=== PATIENT | female | born 1995 | race Asian ===

== ENCOUNTER 2016-02-19 20:46 | Emergency (ER) | payer OTHER ==
[~2016-02-19] VITALS: Ht 154.9 cm; Wt 54.5 kg
[~2016-02-19 20:46] MED LIST: CYCL-319 PO; IBUP400T22 PO
[2016-02-19 21:05] VITALS: Ht 154.9 cm; Wt 54.5 kg
[2016-02-19] MEDS ORDERED: ACETAMINOPHEN 500 MG TAB PO STA (22:04)
[2016-02-19 22:30] LABS: URINE BLOOD (Dip) POC 2+ (NEGATIVE)
--- NOTE | 2016-02-19 22:31 | RADRPT ---
PROCEDURE: CT Head without contrast. CLINICAL INDICATION: headache, auras TECHNIQUE: Continuous axial CT images were obtained from the base of skull to the vertex. No cont rast was administered. The calculated radiation dose measures 630 mGy centimeters. The CTDI measures 45 mGy COMPARISON: None available FINDINGS: The ventricles are symmetric and normal in size. There is no mass effect or midline shift. There i s no abnormal intra-axial or extra-axial fluid collection. There is no evidence of intracranial hem orrhage. There are no abnormal areas of increased or decreased attenuation in the brain parenchyma. The bony calvarium is intact. The orbital soft tissue contents are unremarkable. Paranasal sinuses appear clear IMPRESSION: No mass effect or acute intracranial bleed. Unremarkable CT brain. RPTAT: HBST .Audi Nava MD, Date Time Electronically viewed and signed by .Audi Nava MD, on 02/19/2016 22:31 .T/
[2016-02-19 23:06] LABS: BASOPHILS % 0.5 % (0.0-2.0); EOSINOPHILS # 0.3 10^3/ul (0.0-0.5); EOSINOPHILS % 4.3 % (0.0-7.0); HEMATOCRIT 40.8 % (37.0-47.0); HEMOGLOBIN 13.6 g/dl (12.0-16.0); LYMPHOCYTES % 30.2 % (18.0-55.0); MEAN CORPUSCULAR HEMOGLOBIN 26.6 pg (29.0-33.0); MEAN CORPUSCULAR HGB CONC 33.3 g/dl (32.0-37.0); MONOCYTE # 0.4 10^3/ul (0.3-0.9); MONOCYTES % 6.2 % (0.0-13.0); NEUTROPHIL # 3.9 10^3/ul (1.6-7.5); NEUTROPHILS % 58.8 % (30.0-74.0); PLATELET COUNT 150 10^3/UL (140-440); RED CELL DISTRIBUTION WIDTH 14.3 % (11.5-14.5); UNCORRECTED WBC 6.7 10^3/ul (4.8-10.8); WHITE BLOOD COUNT 6.7 10^3/ul (4.8-10.8)
[2016-02-19 23:11] LABS: CONDITION 1; LH ANALYZER COMMENTS 1
[2016-02-19 23:17] LABS: ALBUMIN 4.7 g/dl (3.3-4.9)
[2016-02-19 23:19] LABS: BILIRUBIN,INDIRECT 0.3 mg/dl (0-1.1); BILIRUBIN,TOTAL 0.3 mg/dl (0.2-1.3); CREATININE 0.61 mg/dl (0.44-1.00)
[2016-02-19 23:20] LABS: ALBUMIN/GLOBULIN RATIO 1.17; CALCIUM 9.4 mg/dl (8.4-10.2); TOTAL PROTEIN 8.7 g/dl (6.1-8.1)
[2016-02-19] MEDS ORDERED: ACET500C5 PO (23:58)
--- NOTE | 2016-02-20 01:44 | ERD ---
ER Documentation Chief Complaint Date/Time DATE: 02/20/16 TIME: 01:39 Chief Complaint passed out 10 mins ago, now w/ SHI, on/off since Apr 2015 HPI 20-year-old female with a past medical history of asthma presents the ED complaining of feeling like she passed out earlier today. States that when she got this feeling she was squatted to the floor but denies any loss of consciousness. States that she would get these fainting spells every year. States that she has seen her primary care physician for these types of feelings when she was younger. States that this headache is worsened with achy sensation on the frontal region with a spastic throbbing sensation to the right side of her face. States that she obtained an MRI a few years ago which was negative for any acute findings. States that when she does experience these symptoms, she started seeing black circles and then has to close her eyes. Denies any fever, chills, abdominal pain, nausea, vomiting, eye pain, blurred vision, weakness, chest pain. Denies any head or neck injuries. ROS All systems reviewed and are negative except as per history of present illness. Medications Home Meds Active Scripts Acetaminophen* (Tylophen*) 500 Mg Capsule, 1 CAP PO Q6H Y for PAIN AND OR ELEVATED TEMP, #20 CAP Prov:REY FELIPE PA-C 02/19/16 Ibuprofen* (Motrin*) 400 Mg Tab, 400 MG PO Q6H Y for PAIN AND OR ELEVATED TEMP, #30 TAB Prov:DAIJA ENRIQUEZ PA-C 04/19/15 Cyclobenzaprine Hcl* (Cyclobenzaprine Hcl*) 10 Mg Tablet, 10 MG PO TID, #15 TAB Prov:DAIJA ENRIQUEZ PA-C 04/19/15 Allergies Allergies: Coded Allergies: No Known Allergy (Unverified , 02/19/16) PMhx/Soc Medical and Surgical Hx: pt denies Medical Hx, pt denies Surgical Hx History of Surgery: No Anesthesia Reaction: No Hx Neurological Disorder: No Hx Respiratory Disorders: Yes (ASTHMA) Hx Cardiac Disorders: No Hx Psychiatric Problems: Yes (BIPOLAR) Hx Miscellaneous Medical Probl: No Hx Alcohol Use: No Hx Substance Use: No Hx Tobacco Use: No Smoking Status: Never smoker Physical Exam Vitals Vital Signs Date Time Temp Pulse Resp B/P Pulse Ox O2 Delivery O2 Flow Rate FiO2 02/19/16 21:05 99.0 82 18 124/91 100 Physical Exam Const: [id number], well-nourished. In no acute distress. Head: Atraumatic, normocephalic Eyes: Normal Conjunctiva without injection. No purulent discharge. PERRLA. EOMI ENT: Normal external ear. Ear canal without erythema. Tympanic membrane pearly whitley without effusion or bulging. Nasal canal clear with normal turbinates. Moist oropharynx without tonsillar exudates. Non-erythematous pharynx. Uvula midline. No drooling. No trismus. Neck: No cervical midline tenderness. Full range of motion. No meningismus. No cervical lymphadenopathy. No JVD. Resp: Clear to auscultation bilaterally. No wheezing, rhonchi, rales, or crackles. No accessory muscle use. No retractions. Cardio: Regular rate and rhythm. No murmurs, rubs or gallops. Abd: Soft, non tender, non distended. Normal bowel sounds. No palpable masses. No rebound tenderness. No guarding. Negative McBurney's Point. Negative Wilson's Sign. Skin: Normal skin turgor. No petechiae or rashes Back: No midline tenderness. No CVA tenderness. Ext: No cyanosis, or edema. Distal pulses intact bilaterally. Neur: Awake and alert. Normal gait. Normal coordination. Cranial Nerves II- VII intact. Normal finger to nose. Muscle strength 5/5. Sensation intact. Psych: Normal Mood and Affect Result Diagram: 02/19/16224602/19/162246 Results 24 hrs Laboratory Tests Test 02/19/16 22:30 02/19/16 22:47 Bedside Urine Blood 2+ Bedside Urine Glucose (UA) Negative Bedside Urine Ketones (LAB) Negative Bedside Urine Leukocyte Esterase (L Negative Bedside Urine Nitrite (LAB) Negative Bedside Urine Protein (LAB) Negative Bedside Urine pH (LAB) 6.5 Alanine Aminotransferase (ALT/SGPT) 30IU/L Albumin 4.7g/dl Albumin/Globulin Ratio 1.17 Alkaline Phosphatase 69IU/L Anion Gap 17 Aspartate Amino Transf (AST/SGOT) 26IU/L Basophils # 0.010^3/ul Basophils % 0.5% Blood Morphology Comment Blood Urea Nitrogen 15mg/dl Calcium Level 9.4mg/dl Carbon Dioxide Level 27mmol/L Chloride Level 103mmol/L Creatinine 0.61mg/dl Direct Bilirubin 0.00mg/dl Eosinophils # 0.310^3/ul Eosinophils % 4.3% Globulin 4.00g/dl Glucose Level 86mg/dl Hematocrit 40.8% Hemoglobin 13.6g/dl Indirect Bilirubin 0.3mg/dl Lymphocytes # 2.010^3/ul Lymphocytes % 30.2% Mean Corpuscular Hemoglobin 26.6pg Mean Corpuscular Hemoglobin Concent 33.3g/dl Mean Corpuscular Volume 80.0fl Mean Platelet Volume 11.0fl Monocytes # 0.410^3/ul Monocytes % 6.2% Neutrophils # 3.910^3/ul Neutrophils % 58.8% Nucleated Red Blood Cells # 0.010^3/ul Nucleated Red Blood Cells % 0.0/100WBC Platelet Count 52738^3/UL Potassium Level 4.0mmol/L Red Blood Count 5.1010^6/ul Red Cell Distribution Width 14.3% Sodium Level 143mmol/L Total Bilirubin 0.3mg/dl Total Protein 8.7g/dl White Blood Count 6.710^3/ul Current Medications Medications (Trade) Dose Ordered Sig/Alejo Route PRN Reason Start Time Stop Time Status Last Admin Dose Admin Acetaminophen (Tylenol Tab) 500 mg ONCE STAT PO 02/19/16 22:04 02/19/16 22:06 DC 02/19/16 22:08 Procedures/MDM This is a 20-year-old female with a past medical history of chronic headaches and auras that presents the ED complaining of feeling worsening fainting spells. Patient is afebrile and nontoxic-appearing. Patient has normal vital signs. She is hemodynamically stable. A CBC, CMP, urine , urine dip, CT of the brain without contrast, EKG was ordered to further evaluate patient. The risks of radiation were discussed with the patient at this time and stated that she would like to have the CT scan as her headache feels worsened today. Patient was treated here in the ED with Tylenol with slight improvement of her pain. CBC: No leukocytosis. No e/o of systemic infection. No e/o anemia. CMP: No e/o severe acidosis, alkalosis, renal failure, diabetic ketoacidosis, liver disease Lipase within normal limits. Urine: No leukocyte esterase, no nitrites, no hematuria. EKG reviewed and interpreted by Dr. Henry Rate/Rhythm: [72 bpm, Normal Sinus Rhythm] No ectopy, no ST elevations, no QT prolongation, normal axis. QRS, ST, T-waves: [No changes consistent w/ acute ischemia] Impression: [No evidence of ischemia or arrhythmia] PROCEDURE: CT Head without contrast. CLINICAL INDICATION: headache, auras TECHNIQUE: Continuous axial CT images were obtained from the base of skull to the vertex. No contrast was administered. The calculated radiation dose measures 630 mGy centimeters. The CTDI measures 45 mGy COMPARISON: None available FINDINGS: The ventricles are symmetric and normal in size. There is no mass effect or midline shift. There is no abnormal intra-axial or extra-axial fluid collection. There is no evidence of intracranial hemorrhage. There are no abnormal areas of increased or decreased attenuation in the brain parenchyma. The bony calvarium is intact. The orbital soft tissue contents are unremarkable. Paranasal sinuses appear clear IMPRESSION: No mass effect or acute intracranial bleed. Unremarkable CT brain. Low suspicion for acute myocardial infarction, pneumothorax, pneumonia, cardiac tamponade, pulmonary embolism, AAA, aortic dissection, Boerhaave's syndrome, cardiac dysrhythmias, meningitis, intracranial bleed, seizure, stroke, subarachnoid hemorrhage, epidural hematoma, subdural hematoma, TIA or other emergent conditions. Discharge medications: Tylenol Strictly instructed patient to follow up with neurologist as she has an appointment on March 02, 2016. Instructed patient to return to the ED sooner for any worsening symptoms. Patient's questions were answered. Patient understood and agreed with discharge plan. Patient discharged stable. Departure Diagnosis: Primary Impression: Headache Additional Impression: Aura Condition: Stable Patient Instructions: Self-Care for Headaches, Headache, Unspecified Referrals: COMMUNITY CLINICS YOU HAVE RECEIVED A MEDICAL SCREENING EXAM AND THE RESULTS INDICATE THAT YOU DO NOT HAVE A CONDITION THAT REQUIRES URGENT TREATMENT IN THE EMERGENCY DEPARTMENT. FURTHER EVALUATION AND TREATMENT OF YOUR CONDITION CAN WAIT UNTIL YOU ARE SEEN IN YOUR DOCTORS OFFICE WITHIN THE NEXT 1-2 DAYS. IT IS YOUR RESPONSIBILITY TO MAKE AN APPOINTMENT FOR FOLOW-UP CARE. IF YOU HAVE A PRIMARY DOCTOR --you should call your primary doctor and schedule an appointment IF YOU DO NOT HAVE A PRIMARY DOCTOR YOU CAN CALL OUR PHYSICIAN REFERRAL HOTLINE AT IF YOU CAN NOT AFFORD TO SEE A PHYSICIAN YOU CAN CHOSE FROM THE FOLLOWING [facility] CLINICS [facility] [address] [facility] [address] [facility] [address] [facility] [address] [facility] [address] [facility]. [facility]. [address] [facility]. [facility] YOU HAVE RECEIVED A MEDICAL SCREENING EXAM AND THE RESULTS INDICATE THAT YOU DO NOT HAVE A CONDITION THAT REQUIRES URGENT TREATMENT IN THE EMERGENCY DEPARTMENT. FURTHER EVALUATION AND TREATMENT OF YOUR CONDITION CAN WAIT UNTIL YOU ARE SEEN IN YOUR DOCTORS OFFICE WITHIN THE NEXT 1-2 DAYS. IT IS YOUR RESPONSIBILITY TO MAKE AN APPOINTMENT FOR FOLOW-UP CARE. IF YOU HAVE A PRIMARY DOCTOR --you should call your primary doctor and schedule and appointment IF YOU DO NOT HAVE A PRIMARY DOCTOR YOU CAN CALL OUR PHYSICIAN REFERRAL HOTLINE AT . IF YOU CAN NOT AFFORD TO SEE A PHYSICIAN YOU CAN CHOSE FROM THE FOLLOWING [facility]: [facility] [address] [place] [address] [facility] [address] [place] [address] [facility] [address] [place] [address] [facility] URGENT CARE/SPECIALTIES Additional Instructions: FOLLOW UP WITH YOUR PRIMARY CARE PHYSICIAN TOMORROW for a referral to neurologist. Return to this facility if you are not improving as expected. REY FELIPE PA-C Feb 20, 2016 01:44
== END 2016-02-20 00:23 | disposition home or self-care (01) ==
LOC: FTE 20:46
DX: R51 Headache (principal); J45.909 Unspecified asthma, uncomplicated; R55 Syncope and collapse
CPT/HCPCS: 36415; 70450; 80053; 81003; 85025; 93005; Z7502; Z7610

== ENCOUNTER 2016-07-22 11:19 | Emergency (ER) | payer OTHER ==
[~2016-07-22] VITALS: Ht 154.9 cm; Wt 54.0 kg
[~2016-07-22 11:19] MED LIST changes: +ACET500C5 PO
[2016-07-22 11:27] VITALS: Ht 154.9 cm; Wt 54.0 kg
[2016-07-22] MEDS ORDERED: AZIT250T94 PO (12:21)
[2016-07-22] MEDS ORDERED: ALBU8.5H3 INH (12:21)
[2016-07-22] MEDS ORDERED: IBUP400T22 PO (12:21)
--- NOTE | 2016-07-22 12:28 | ERD ---
ER Documentation Chief Complaint Date/Time DATE: 07/22/16 TIME: 12:22 Chief Complaint Complains of cwp and cough x 1 week HPI This is a 20-year-old female presents to the emergency department for concerns of a ongoing cough and chest wall pain 1 week. Patient states that her cough is dry and productive in nature. Patient reports occasional yellow phlegm production. Patient reports intermittent rectal fevers. She reports chest pain when coughing only. Patient denies any shortness of breath at rest. Patient denies any upper extremity pain, diaphoresis or LOC. Patient states she does have sick contacts of her mother and brother were both diagnosed with acute bronchitis last week. Patient denies ear pain, nausea, vomiting, abdominal pain or diarrhea. Patient does have some mild throat irritation hoarseness in her voice however she denies any trismus or drooling. No recent travel. ROS All systems reviewed and are negative except as per history of present illness. Medications Home Meds Active Scripts Azithromycin* (Zithromax*) 250 Mg Tablet, 250 MG PO .ZPACK DIRECTED, #6 TAB TAKE 500 MG (2 TABS) THE FIRST DAY THEN 250 MG (1 TAB) DAYS 2-5 Prov:BLANKA HERNANDEZ PA-C 07/22/16 Albuterol Sulfate* (Proair HFA*) 8.5 Gm Hfa.aer.ad, 2 PUFF INH Q6, #1 INHALER Prov:BLANKA HERNANDEZ PA-C 07/22/16 Ibuprofen* (Motrin*) 400 Mg Tab, 400 MG PO Q6, #20 TAB Prov:BLANKA HERNANDEZ PA-C 07/22/16 Acetaminophen* (Tylophen*) 500 Mg Capsule, 1 CAP PO Q6H Y for PAIN AND OR ELEVATED TEMP, #20 CAP Prov:REY FELIPE PA-C 02/19/16 Ibuprofen* (Motrin*) 400 Mg Tab, 400 MG PO Q6H Y for PAIN AND OR ELEVATED TEMP, #30 TAB Prov:DAIJA ENRIQUEZ PA-C 04/19/15 Cyclobenzaprine Hcl* (Cyclobenzaprine Hcl*) 10 Mg Tablet, 10 MG PO TID, #15 TAB Prov:DAIJA ENRIQUEZ PA-C 04/19/15 Allergies Allergies: Coded Allergies: No Known Allergy (Unverified , 07/22/16) PMhx/Soc History of Surgery: No Anesthesia Reaction: No Hx Neurological Disorder: No Hx Respiratory Disorders: Yes (ASTHMA) Hx Cardiac Disorders: No Hx Psychiatric Problems: Yes (BIPOLAR) Hx Miscellaneous Medical Probl: No Hx Alcohol Use: No Hx Substance Use: No Hx Tobacco Use: No Smoking Status: Unknown if ever smoked FmHx Family History: No diabetes Physical Exam Vitals Vital Signs Date Time Temp Pulse Resp B/P Pulse Ox O2 Delivery O2 Flow Rate FiO2 07/22/16 13:27 98.9 66 18 118/62 96 Room Air 07/22/16 11:27 98.9 100 20 119/68 96 Physical Exam GENERAL: Well-developed, well-nourished female. Appears in no acute distress. Speaking in full sentences. No abdominal retractions, no nasal flaring, no tripoding. HEAD: Normocephalic, atraumatic. No deformities or ecchymosis. EYE: Pupils equal, round, and reactive to light. EOMs intact. No conjunctival erythema. No eye discharge. ENT: External ear without any masses or tenderness. Auditory canals clear bilaterally. TM visualized bilaterally, non-erythematous, non-bulging. Nasal mucosa pink with no discharge. Oropharynx is erythematous without any tonsillar swelling or exudates. No uvula deviation. No kissing tonsils. NECK: Supple. No meningismus. Normal ROM of the neck. CHEST: Tender to palpation mid sternum. Pain is reproducible. LUNG: Clear to auscultation bilaterally. No rhonchi, wheezing, rales or coarse breath sounds. HEART: Regular rate and rhythm. No murmurs, rubs or gallops. BACK: No midline tenderness. EXTREMITIES: Equal pulses bilaterally. No peripheral clubbing, cyanosis or edema. No unilateral leg swelling. NEUROLOGIC: Alert and oriented to person, place and time. Moving all four extremities. 5/5 strength in all extremities. Normal speech. Steady gait. SKIN: Normal color. Warm and dry. No rashes or lesions. Procedures/MDM ED COURSE: The patient was stable throughout ED course. I kept the patient and/or family informed of laboratory and diagnostic imaging results throughout the ED course. DIAGNOSTIC IMAGING: Read by radiologist. DIAGNOSTIC IMAGING REPORT Patient: NANCY CARPENTER : 1995 Age: 20 Sex: F MR #: [id number] [facility] #: [id number] DOS: 07/22/16 1201 Ordering MD: BLANKA HERNANDEZ PA-C Location: FT Room/Bed: PROCEDURE: Chest x-ray CLINICAL INDICATION: cough. TECHNIQUE: One-view frontal. COMPARISON: 04/19/2015 FINDINGS: The cardiac silhouette is normal. No infiltrates are noted. No hilar abnormalities are identified. No pneumothorax or pleural effusions are visualized. IMPRESSION: 1. No active cardiopulmonary changes. RPTAT: HGSG .Masoud Jama MD, MD Date Time Electronically viewed and signed by .Masoud Jama MD, on 07/22/2016 12: 47 .G/ CC: BLANKA HERNANDEZ PA-C MEDICAL DECISION MAKING: This is a 20-year-old female who presents with a cough 1 week. Vital signs were reviewed. Patient was afebrile. Patient was not hypoxic. ENT exam was normal. Exam was normal. Chest x-ray was unremarkable. Given these findings, the patients presentation is most consistent with acute bronchitis. At this time I will treat the patient with course of antibiotics. I have a much lower clinical concern for bacterial infections including pneumonia, meningitis, sinusitis, otitis externa, acute otitis media, strep pharyngitis, epiglottitis or peritonsillar abscess. PRESCRIPTIONS: Albuterol, azithromycin, ibuprofen DISCHARGE: At this time, patient is stable for discharge and outpatient management. Supportive therapies such as OTC throat lozenges, salt water gurgles, popsicles and jello discussed. I have instructed the patient to follow-up with his/her primary care physician in 1-2 days. I have instructed the patient to promptly return to the ER for any new or worsening symptoms including increased pain, swelling, fever, nausea, vomiting, weakness or difficulty breathing. The patient and/or family expressed understanding of and agreement with this plan. All questions were answered. Home care instructions were provided. Departure Diagnosis: Primary Impression: Acute bronchitis Bronchitis organism: unspecified organism Qualified Code: J20.9 - Acute bronchitis, unspecified organism Additional Impression: Hoarseness of voice Condition: Stable Patient Instructions: Acute Bronchitis Additional Instructions: Call your primary care doctor TOMORROW for an appointment during the next 1-2 days.See the doctor sooner or return here if your condition worsens before your appointment time. BLANKA HERNANDEZ PA-C Jul 22, 2016 12:28
--- NOTE | 2016-07-22 12:48 | RADRPT ---
PROCEDURE: Chest x-ray CLINICAL INDICATION: cough. TECHNIQUE: One-view frontal. COMPARISON: 04/19/2015 FINDINGS: The cardiac silhouette is normal. No infiltrates are noted. No hilar abnormalities are identified. No pneumothorax or pleural effusions are visualized. IMPRESSION: 1. No active cardiopulmonary changes. RPTAT: HGSG .Masoud Jama MD, MD Date Time Electronically viewed and signed by .Masoud Jama MD, MD on 07/22/2016 12:47 .G/
[2016-07-22 13:27] VITALS: BP 118/62; PULSE 66; RESP 18; TEMP 98.9
== END 2016-07-22 13:27 | disposition home or self-care (01) ==
LOC: FTE 11:19
DX: J20.9 Acute bronchitis, unspecified (principal); J45.909 Unspecified asthma, uncomplicated; R49.0 Dysphonia
CPT/HCPCS: 71010

== ENCOUNTER 2017-04-18 11:41 | Emergency (ER) | END 2017-04-18 13:19 | disposition left against medical advice (07) ==